=== PATIENT | female | born 1995 | race Hispanic/Latino ===

== ENCOUNTER 2017-02-01 19:37 | Inpatient (IN) | payer MEDICAID, OTHER, SELFPAY ==
[2017-02-01] MEDS ORDERED: Acetaminophen 500 MG TAB PO PRN (22:01)
[2017-02-01] MEDS ORDERED: Promethazine HCl 25 MG/ML VIAL IM PRN (22:01)
[2017-02-01] MEDS ORDERED: Docusate 100 MG CAP PO PRN (22:01)
[2017-02-01] MEDS ORDERED: Calcium Gluc 4.6 MEQ/10 ML (100 MG/ML) SLOW IVP PRN (22:01)
[2017-02-01] MEDS ORDERED: Magnesium Sulfate 20 gm/500 ml 20 GM/500 ML BAG ONE (22:09)
[2017-02-01] MEDS ORDERED: Labetalol HCl 100 MG/20 ML VIAL SLOW IVP PRN (22:14)
[2017-02-01] MEDS ORDERED: Penicillin G Potassium 5 MILL.UNITS in Sodium Chloride 0.9% 100 ML IVPB SCH (22:15)
[2017-02-01] MEDS ORDERED: Lactated Ringer's 1,000 ML IV SCH (22:15)
[2017-02-01] MEDS ORDERED: Magnesium Sulfate 20 GM/WATER 500 ML BAG IVPB SCH (22:15)
[2017-02-01 22:27] LABS: Hematocrit 46.8 % (36.0-47.0); Mean Platelet Volume 11.7 fL (7.4-10.4); Red Blood Cell (RBC) Count 5.02 mill/uL (4.20-5.40); White Blood Cell (WBC) Count 12.4 thou/uL (4.8-10.8)
[2017-02-01] MEDS: Magnesium Sulfate 20 gm/500 ml 20 GM/500 ML BAG IVPB SCH (22:48)
[2017-02-01] MEDS ORDERED: Betamet Acet/Betamet Na Ph 30 MG/5 ML VIAL IM SCH (23:00)
[2017-02-01] MEDS: Misoprostol 100 MCG TAB VAG SCH (23:15)
[2017-02-01 23:17] VITALS: BMI 27.3
[2017-02-01] MEDS: Ondansetron HCl/PF 4 MG/2 ML Vial IVP PRN (23:31)
[2017-02-02] MEDS: Lactated Ringer's 1,000 ML IV SCH ×4 (01:31→22:57)
--- NOTE | 2017-02-02 02:00 | PDOC.LDHP ---
Labor and Delivery H&P Chief complaint: other (elevated LFTs, BP, scotoma. Preeclampsia w/ severe features) HPI: 21 yo @ 36.2 by LMP and 2nd tri US presents to L&D after being found to have elevated BP >140 systolic X3 today at clinic. Additionally, pt was noted to have elevated LFT's >2X normal today. complicated by GDM treated with metformin 500mg BID. She reoprts good movement. C/o scotoma, ruq pain. Denies CP, sob, nvdc. Reports good movement. No other PMH, no prior surgeries. Allergy only to "buscapina." Current gestational age (weeks): 36 (36.3) Due date: 02/27/17 Dating criteria: last menstrual period, second trimester ultrasound Grav: 1 Para: 0 OB History Details: GDM on metformin PNV Current complications: gestational diabetes, preeclampsia with severe features Abnormal US findings: No Current medications: pre- vitamins, other (metformin) Social history: none - Physical Exam General: NAD, breathing through contractions Heart: RRR Lungs: CTAB Abdomen: other (ttp ruq) FHT: category 1, variability present Meyers contractions every: 3-8 min - Vaginal Exam cm dilated: 0 Effacement: 0% Station: 1+ - OB Labs Blood type: A RH: positive Antibody Screen: negative HIV: negative RPR: negative HEPSAg: negative 1 hour GCT: positive GBS: unknown Rubella: immune - Assessment L&D Assessment: medically indicated induction - Plan Plan: admit to L&D, cervical ripening, labor augmentation if indicated, GBS antibiotic prophylaxis, magnesium for seizure prophylaxis, anesthesia consult for pain management -: 21 yo @ 32.3 preeclampsia w/ severe features, start mag, check mag level @ 4hrs, titrate accordingly, mag check q4hr neuro check q1hr, monitor is/os, continuous external monitors, cytotec for induction if contractions less than 3/10min IVF LR @ 125 + 1L bolus GBS unknown and , will prophylax induction celestone 12mg q24 hours cervical checks q4 hrs <Mark Ornelas - Last Filed: 02/02/17 01:54> <Nereyda Clemens - Last Filed: 02/02/17 06:23> Allergies/Adverse Reactions: Allergies Allergy/AdvReac Type Severity Reaction Status Date / Time No Known Allergies Allergy Unverified 02/01/17 20:32 Attending Addendum - Attending Addendum I personally evaluated the patient and discussed the management with Dr. Ornelas on 02/01/17. I agree with the History, Examination, Assessment and Plan documented above with any addition or exceptions noted below. See dictated H&P. <Nereyda Clemens - Last Filed: 02/02/17 06:23>
--- NOTE | 2017-02-02 02:20 | PDOC.EVN ---
Event Note - Event Note Event Note: Mag check: no changes since prior exam, reflexes 2+. Denies scotoma, headache. Ruq pain persists. Urine clear, styles in place. Serum magnesium pending, will titrate accordingly. Continue plan of care. Hold cytotec for contractions >3/ 10min.
--- NOTE | 2017-02-02 04:26 | HP ---
DATE OF ADMISSION: 02/01/2017 ATTENDING: Dr. Nereyda Clemens. RESIDENT: Dr. Mark Ornelas. Dr. Ornelas's H and P reviewed and case discussed. Pertinent portion of the history and physical reviewed by myself and I agree with the assessment and plan with the following addendum. Ms. Jacobo is a 21-year-old female, , at 36 weeks 2 days, who was seen at the Clinic for routine visit this afternoon and had elevated blood pressures in the 140s/90s. She had 3 elevated readings in the clinic that resolved after 2 hours of rest. There was concern for preeclampsia, so laboratory work was done which returned with concerning values, so she was sent here for evaluation. On arrival, she was complaining of scotomas. Her blood pressures have been moderately elevated with multiple diastolics greater than 90. Her physical exam shows RUQ pain and hyperreflexia without clonus. On lab work review that was done earlier, she has platelets of 189, creatinine of 1.00 , AST of 97, ALT of 143, and a uric acid of 9.5. Case was briefly discussed with Dr. King and the patient was admitted for a preclampsia with severe features including scotomas, worsening renal function, right upper quadrant pain , and elevated LFTs. There is no concern for HELLP syndrome right now. The patient's cervical exam was closed, thick, and 0 station. She was started on magnesium with a bolus of 4 mg with 1 mg per hour. Given her elevated creatinine, we will check a serum magnesium level. If her levels remained non- toxic and her urine output is good, we will continue to monitor neurologic reflexes rather than serum levels. Given her status, as she is GBS unknown, we will start on penicillin prophylaxis and give Celestone IM 12 mg now with a second dose in 24 hours if she remains undelivered at that time. A Quiñones has been placed to monitor urine output. Given her unfavorable Wang score, a Cytotec will be placed. NST on arrival shows a category I strip. I anticipate a vaginal delivery for her. We will monitor her closely overnight. MTDD
[2017-02-02] MEDS: Misoprostol 100 MCG TAB VAG SCH ×3 (05:12→09:02)
--- NOTE | 2017-02-02 06:20 | PDOC.EVN ---
Event Note - Event Note Event Note: Mag check: serum mag resulted @ 0500 was 5, will maintain 1mg/hr rate. Reflexes remain 2+, UOP is averaging 200ml/hr, currently 1300mL in styles bag. Persistent RUQ pain. 2nd cytotec placed @ 0500, pt had 3 recurrent lates after placement which resolved w/ maternal O2. strip currently cat 1 mod variability baseline 130s-40s. Last cervical check 1, +1 station, thick, posterior. Pt reports adequate pain control. Continue plan of care.
[2017-02-02] MEDS ORDERED: Penicillin G Potassium 5 MILL.UNITS in Sodium Chloride 0.9% 100 ML IVPB SCH (06:30)
[2017-02-02] MEDS ORDERED: Bicitra 30 ML UDCUP PO SCH (08:45)
[2017-02-02] MEDS ORDERED: CEFAZOLIN/Water 2 GM/20 ML SYRINGE SLOW IVP SCH (08:45)
[2017-02-02] MEDS: Pen G 2.5 MILL.UNITS/50 ML BAG IVPB SCH ×2 (08:47→09:02)
[2017-02-02] MEDS ORDERED: Morphine PF 1 MG/ML SYR ONE (08:54)
[2017-02-02] MEDS ORDERED: Ondansetron HCl/PF 4 MG/2 ML Vial ONE ×2 (08:55→17:55)
[2017-02-02] MEDS ORDERED: Oxytocin 10 UNITS/ML VIAL ONE ×2 (08:55→10:50)
--- NOTE | 2017-02-02 09:02 | PDOC.LDPN ---
Labor & Delivery Progress Note - Subjective Subjective: comfortable - Objective Abnormal vital signs: elevated BPs noted General: NAD Uterine fundus: non tender SVE: 1 Effacement: 0% Station: 1+ FHT: category 2, late decelerations (recurrent late decels in site of IV fluids , position change and oxygen. Minimal variability. ) [employer] contractions every: 2 min, tachysystole noted. Resuscitative measures: maternal oxygen, maternal IV fluids, maternal position change, other (WIll give terbutaline for tachysystole.) - Assessment (1) Severe pre-eclampsia Code(s): O14.10 - SEVERE PRE-ECLAMPSIA, UNSPECIFIED TRIMESTER Current Visit: Yes Status: Acute (2) 36 weeks gestation of Code(s): Z3A.36 - 36 WEEKS GESTATION OF Current Visit: Yes Status : Acute (3) Gestational diabetes Code(s): O24.419 - GESTATIONAL DIABETES MELLITUS IN , UNSP CONTROL Current Visit: Yes Status: Acute (4) heart rate decelerations affecting management of mother Code(s): O36.8390 - MATERN CARE FOR ABNLT FETL HRT RATE OR RHYM, UNSP TRI, UNSP Current Visit: Yes Status: Acute Comment: Persitent Cat II tracing, remote form delivery. After discussion of the R/B/I/A, patiet concurs with plan for delivery.
[2017-02-02] MEDS ORDERED: PHENYLEPHRINE-NS 100 MCG/ML 10 ML SYRINGE ONE ×2 (09:03→17:55)
[2017-02-02] MEDS ORDERED: Terbutaline Sulfate 1 MG/ML VIAL SC SCH (09:30)
[2017-02-02] MEDS ORDERED: ePHEDrine/0.9% NaCl/PF SYRINGE 50 mg/10 ml ONE ×2 (10:27→17:55)
[2017-02-02 10:30] LABS: CO2 Tension (PaCO2) 133.1 mmHg (44.0-56.0)
[2017-02-02 10:31] LABS: Base Excess -15.7 mEq/L (0 (+/- 2.5)); pH (venous) 6.87 (7.25-7.35)
[2017-02-02] MEDS ORDERED: Calcium Gluconate 4.6 MEQ, Admixture Fee 1 EACH in Sodium Chloride 0.9% 100 ML IVPB PRN (10:34)
[2017-02-02] MEDS ORDERED: Adacel (T-DAP) 0.5 ML VIAL IM ONE (10:34)
[2017-02-02] MEDS ORDERED: Bisacodyl 10 MG SUPP PR PRN (10:35)
[2017-02-02] MEDS ORDERED: diphenhydrAMINE 25 MG CAP PO PRN (10:35)
[2017-02-02] MEDS ORDERED: HYDROcodone/Acetaminophen 5/325 mg Tablet PO PRN ×2 (10:35)
[2017-02-02] MEDS ORDERED: Acetaminophen 325 MG TAB PO PRN (10:35)
[2017-02-02] MEDS ORDERED: Simethicone Chewable 80 MG TAB PO PRN (10:35)
[2017-02-02] MEDS ORDERED: LR w/ Pitocin 40 units/1000 ML BAG IV SCH (10:45)
[2017-02-02] MEDS: Ondansetron HCl/PF 4 MG/2 ML Vial IVP PRN (12:50)
[2017-02-02] MEDS ORDERED: Ondansetron HCl/PF 4 MG/2 ML Vial IVP PRN (13:18)
[2017-02-02] MEDS ORDERED: Ketorolac Tromethamine 30 MG/ML VIAL IVP PRN (13:18)
[2017-02-02] MEDS ORDERED: diphenhydrAMINE 50 MG/ML VIAL IVP PRN (13:18)
[2017-02-02] MEDS ORDERED: Eucerin (Mineral Oil/Petrolatum,White) 30 gm Jar TOP PRN (13:18)
[2017-02-02] MEDS ORDERED: Naloxone HCl 0.4 mg/ml Vial IV PRN (13:18)
[2017-02-02] MEDS ORDERED: Promethazine HCl 25 MG/ML VIAL IM PRN (13:18)
[2017-02-02] MEDS ORDERED: Promethazine HCl 25 MG SUPP PR PRN (13:18)
[2017-02-02] MEDS ORDERED: Naloxone HCl 0.4 mg/ml Vial IVP PRN ×2 (13:18)
[2017-02-02] MEDS ORDERED: Communication Order-Pharmacy FS SCH (13:30)
[2017-02-02] MEDS: Magnesium Sulfate 20 gm/500 ml 20 GM/500 ML BAG IVPB SCH (14:23)
--- NOTE | 2017-02-02 14:29 | OP-2 ---
DATE OF PROCEDURE: 02/02/2017 RESIDENT SURGEON: Dr. Herb Almendarez, Dr. John Grace. BENCH MOVER: Dr. Mati Barboza. ATTENDING SURGEON: Dr. Mariano Rosas. PROCEDURE: Primary low transverse section. PREOPERATIVE DIAGNOSES: 1. intrauterine here for induction, because of severe preeclampsia. 2. Preeclampsia with severe features. 3. Transaminitis. 4. Gestational diabetes, well controlled by metformin. 5. Group B streptococcus unknown, treated prophylactically. 6. Persistent category 2 tracing, despite resuscitative efforts and in a patient remote from delivery. POSTOPERATIVE DIAGNOSES: 1. with term appropriate for gestational age male delivered. 2. Preeclampsia with severe features. 3. Transaminitis. 4. Controlled gestational diabetes on metformin. 5. GBS unknown, prophylaxis adequate. INDICATIONS: The patient is a 21-year-old, G1, P0, at 36 and 2 by LMP confirmed a second-trimester ultrasound, who is here for induction because of preeclampsia with severe features. She had controlled gestational diabetes on metformin. section was indicated as patient had persistent category 2 tracing with recurrent late decelerations and intermittent minimal variability. The patient was remote from delivery. The patient did have periods of moderate variability within this. PROCEDURE IN DETAIL: After risks, benefits, and alternatives were explained to the patient, she gave informed consent. Preoperative antibiotics including cefazolin 2 grams IV. The patient was taken to the operating room where spinal anesthesia was initiated. She was placed in supine position with left tilt and prepped and draped in the usual sterile fashion. A Pfannenstiel incision was made with scalpel and carried down to the level of fascia, which was sharply nicked. Fascial cut was extended bilaterally with Haile scissors. Inferior and superior edges of the cut fascial edges were elevated with Luis Angel clamps and underlying rectus muscles were sharply and bluntly dissected free. The recti were divided digitally and retracted manually. The peritoneum was entered bluntly, retracted manually. Bladder blade was placed. Bladder flap was created with Metzenbaum scissors. A low-transverse score was made with the scalpel. The uterus was entered in the midline with scalpel. A clear fluid with light meconium was seen. Hysterotomy was extended manually. was noted to be vertex. Head was delivered to hysterotomy and then was easily delivered with fundal pressure. Infant was noted to have poor tone and cord was cut and clamped and patient was brought to J[facility] team expeditiously. Placenta was manually extracted and found to be intact with 3-vessel cord noted and sent to pathology. Cord gas was obtained. Uterus was externalized and endometrium was curetted with a dry lap. Bladder blade was replaced and the uterus was closed with a running locking 0 Monocryl. During closure it was noted that there was a left lateral extension of the hysterotomy that did not involve the uterine artery. It was closed as part of the hysterotomy closure and was hemostatic. The uterus was internalized and one small area of bleeding was noted in the middle of the hysterotomy, which was fixed with a figure-of- eight with 0 Monocryl. The abdomen was suctioned free of clots, no blood was noted. While uterus was internalized, the retroperitoneum created with bladder flap was reattached to the vesicoperitoneum above the hysterotomy. Again, hemostasis was noted. Peritoneum was closed with a 3-0 Monocryl. The fascia was then closed with a running nonlocking 0-Vicryl suture. Subcutaneous tissue was examined and there were no bleeders. Skin was approximated with neri and pressure dressing was placed. All counts were correct. The patient tolerated the procedure well and was taken to recovery room in stable condition. ESTIMATED BLOOD LOSS: 500 mL. COMPLICATIONS: None. SPECIMENS: Cord blood sent to lab for blood type. Placenta sent for pathology and cord segment sent for blood gas. FINDINGS: Grossly normal male, but with poor tone. Apgars are 3, 7, and 8 respectively, grossly normal placenta, 3-vessel cord that was grossly flat was sent for was sent to pathology. DRAINS: Quiñones to gravity, draining clear urine. [facility]
--- NOTE | 2017-02-02 14:50 | PDOC.PP ---
Post Progress Note Post Day #: 0 Subjective: Pt is doing well. States that she is still numb from the epidural. Denies headache. Has improving nausea/vomiting. Denies UE numbness/tingling. PO intake tolerated: yes Flatus: no Ambulation: no Vital Signs (12 hours) Temp Pulse Resp 02/02/17 12:04 99.2 F 90 18 02/02/17 08:06 98.8 F 90 18 Weight Weight 63.503 kg - Physical Examination General: NAD Neurological: no gross focal deficits (Patellar reflex 2/4) Psychiatric: A&Ox3 Result Diagrams: 02/01/17 21:50 Additional Labs: Post Labs Blood Type A POSITIVE 02/01/17 21:50 Hep Bs Antigen Non-Reactive S/CO (NonReactive) 02/01/17 21:50 (1) delivery delivered Code(s): O82 - ENCOUNTER FOR DELIVERY WITHOUT INDICATION Status: Acute Comment: Pt is doing well post op. Has controlled pain. n/v is improving from OR. Incision is clean (2) Severe pre-eclampsia Code(s): O14.10 - SEVERE PRE-ECLAMPSIA, UNSPECIFIED TRIMESTER Status: Acute Comment: Mg check at 1430. DTR 2/5, no UE numbness, no headache, no changes in vision. Check again in 4 hours
--- NOTE | 2017-02-02 17:17 | PDOC.PP ---
Post Progress Note Post Day #: 0 Subjective: Pt feeling well. States that pain is improving. Denies headaches, changes in vision, UE numbness/tingling. PO intake tolerated: yes Flatus: no Ambulation: no Vital Signs (12 hours) Temp Pulse Resp 02/02/17 12:04 99.2 F 90 18 02/02/17 08:06 98.8 F 90 18 Weight Weight 63.503 kg - Physical Examination General: NAD Cardiovascular: no m/r/g, RRR Respiratory: clear to auscultation bilaterally Abdominal: appropriately TTP Fundus firm & at: U Neurological: no gross focal deficits (DTR 2/4) Psychiatric: A&Ox3 Result Diagrams: 02/01/17 21:50 Additional Labs: Post Labs Blood Type A POSITIVE 02/01/17 21:50 Hep Bs Antigen Non-Reactive S/CO (NonReactive) 02/01/17 21:50 (1) delivery delivered Code(s): O82 - ENCOUNTER FOR DELIVERY WITHOUT INDICATION Status: Acute Comment: Pt is doing well post op. Has controlled pain. n/v is improving from OR. Incision is clean (2) Severe pre-eclampsia Code(s): O14.10 - SEVERE PRE-ECLAMPSIA, UNSPECIFIED TRIMESTER Status: Acute Comment: Mg check at 1715. DTR 2/4, no UE numbness, no headache, no changes in vision. Check again in 4 hours. LE is still numb from epidural. Draw Mg level at 1800
[2017-02-02] MEDS: Docusate (Surfak) 240 MG CAP PO SCH (21:30)
--- NOTE | 2017-02-02 22:17 | PDOC.PP ---
Post Progress Note Post Day #: 1 Subjective: 21 yo delivered @ 36.3 via ltcs 2/2 NRFHT and preeclampsia w/ severe features. Pt denies headache, vision changes, epigastric and RUQ pain. UOP has been approx 350mL/hr over last 2 hours and latest BP was 132/67. Overall, pt continues to improve. Vital Signs (12 hours) Temp Pulse Resp 02/02/17 20:00 98.3 F 96 20 02/02/17 16:00 99.0 F 88 18 02/02/17 12:04 99.2 F 90 18 Weight Weight 63.503 kg - Physical Examination General: NAD Cardiovascular: no m/r/g, RRR Respiratory: clear to auscultation bilaterally, non-labored breathing Abdominal: + bowel sounds, no distention, appropriately TTP Neurological: no gross focal deficits (reflexes 2+) Result Diagrams: 02/01/17 21:50 Additional Labs: Post Labs Blood Type A POSITIVE 02/01/17 21:50 Hep Bs Antigen Non-Reactive S/CO (NonReactive) 02/01/17 21:50 (1) delivery delivered Code(s): O82 - ENCOUNTER FOR DELIVERY WITHOUT INDICATION Status: Acute Comment: Pt is doing well post op. Has controlled pain. (2) Severe pre-eclampsia Code(s): O14.10 - SEVERE PRE-ECLAMPSIA, UNSPECIFIED TRIMESTER Status: Acute Comment: Mg check at 2215. DTR 2+/4, no UE numbness, no headache, no changes in vision. Check again in 4 hours. Mag pending.
--- NOTE | 2017-02-03 02:18 | PDOC.PP ---
Post Progress Note Post Day #: 1 Subjective: 21 delivered via ltcs 2/2 nrfht and preeclampsia with severe features. PO intake tolerated: yes Vital Signs (12 hours) Temp Pulse Resp 02/03/17 00:11 98.5 F 93 20 02/02/17 20:00 98.3 F 96 20 02/02/17 16:00 99.0 F 88 18 Weight Weight 63.503 kg - Physical Examination General: NAD Cardiovascular: no m/r/g, RRR Respiratory: clear to auscultation bilaterally, non-labored breathing Abdominal: + bowel sounds, appropriately TTP (no epigatric or ruq tenderness) Neurological: no gross focal deficits (reflexes 2+/4, unchanged from prior exam) Result Diagrams: 02/01/17 21:50 Additional Labs: Post Labs Blood Type A POSITIVE 02/01/17 21:50 Hep Bs Antigen Non-Reactive S/CO (NonReactive) 02/01/17 21:50 (1) Severe pre-eclampsia Code(s): O14.10 - SEVERE PRE-ECLAMPSIA, UNSPECIFIED TRIMESTER Status: Acute Comment: Mg check at 0215. DTR 2+/4, no headache, no changes in vision. Check again in 4 hours. Mag level therapeutic. Pt continues to diurese well. UOP averaging 500mL/hr over last 2 hrs. Will continue to monitor.
--- NOTE | 2017-02-03 05:39 | PDOC.PP ---
Post Progress Note Post Day #: 1 PO intake tolerated: yes Vital Signs (12 hours) Temp Pulse Resp 02/03/17 00:11 98.5 F 93 20 02/02/17 20:00 98.3 F 96 20 Weight Weight 63.503 kg - Physical Examination General: NAD Cardiovascular: no m/r/g, RRR Respiratory: clear to auscultation bilaterally, non-labored breathing Abdominal: + bowel sounds, appropriately TTP (no ruq/epigastric ttp) Neurological: no gross focal deficits (reflexes 2+/4, unchanged from prior exam) Result Diagrams: 02/01/17 21:50 Additional Labs: Post Labs Blood Type A POSITIVE 02/01/17 21:50 Hep Bs Antigen Non-Reactive S/CO (NonReactive) 02/01/17 21:50 (1) Severe pre-eclampsia Code(s): O14.10 - SEVERE PRE-ECLAMPSIA, UNSPECIFIED TRIMESTER Status: Acute Comment: Mg check at 0535. DTR 2+/4, no headache, no changes in vision. Check again in 4 hours. Mag level therapeutic. Pt continues to diurese well. UOP averaging 500mL/hr over last 2 hrs. last BP 116/61, overall BP continues to trend down. Will continue to monitor.
[2017-02-03 06:01] LABS: Hematocrit 39.8 % (36.0-47.0); Mean Platelet Volume 9.9 fL (7.4-10.4); Red Blood Cell (RBC) Count 4.24 mill/uL (4.20-5.40); White Blood Cell (WBC) Count 18.1 thou/uL (4.8-10.8)
--- NOTE | 2017-02-03 08:26 | PDOC.PP ---
Post Progress Note Post Day #: 1 Subjective: Pt is doing well this morning. She complains of minimal pain without medication. She is soaking though less than 1 pad per hour. Denies fever, SOB/ chest pain, she has some flatus. PO intake tolerated: yes Flatus: yes Ambulation: no Vital Signs (12 hours) Temp Pulse Resp 02/03/17 04:00 98.5 F 93 20 02/03/17 00:11 98.5 F 93 20 Weight Weight 63.503 kg - Physical Examination General: NAD Cardiovascular: no m/r/g, RRR Respiratory: clear to auscultation bilaterally, non-labored breathing Abdominal: + bowel sounds, lochia, no distention, appropriately TTP Fundus firm & at: u -3 Extremities: negative homans (B) Skin: CS incision dry & intact Neurological: no gross focal deficits Psychiatric: A&Ox3, normal affect Result Diagrams: 02/03/17 05:43 Additional Labs: Post Labs Blood Type A POSITIVE 02/01/17 21:50 Hep Bs Antigen Non-Reactive S/CO (NonReactive) 02/01/17 21:50 (1) delivery delivered Code(s): O82 - ENCOUNTER FOR DELIVERY WITHOUT INDICATION Status: Acute Comment: Pt is doing well post op. Has controlled pain. Incision is clean and dry. Move to post after dc'ing Mg. (2) Severe pre-eclampsia Code(s): O14.10 - SEVERE PRE-ECLAMPSIA, UNSPECIFIED TRIMESTER Status: Acute Comment: Mg will continue until 1000. DTR 2+/4, no headache, no changes in vision. Check again in 4 hours. Mag level therapeutic. Pt continues to diurese well. UOP averaging 500mL/hr over last 2 hrs. last BP 116/61, overall BP continues to trend down. Will continue to monitor. <Mati Barboza - Last Filed: 02/03/17 10:27> Vital Signs (12 hours) Temp Pulse Resp 02/03/17 08:00 98.6 F 90 18 02/03/17 04:00 98.5 F 93 20 02/03/17 00:11 98.5 F 93 20 Weight Weight 63.503 kg Result Diagrams: 02/03/17 05:43 Additional Labs: Post Labs Blood Type A POSITIVE 02/01/17 21:50 Hep Bs Antigen Non-Reactive S/CO (NonReactive) 02/01/17 21:50 (1) Severe pre-eclampsia Code(s): O14.10 - SEVERE PRE-ECLAMPSIA, UNSPECIFIED TRIMESTER Status: Acute Comment: Complete mag this morning. (2) 36 weeks gestation of Code(s): Z3A.36 - 36 WEEKS GESTATION OF Status: Acute (3) Gestational diabetes Code(s): O24.419 - GESTATIONAL DIABETES MELLITUS IN , UNSP CONTROL Status: Acute <Mariano Rosas - Last Filed: 02/03/17 10:35> Attending Addendum - Attending Addendum I personally evaluated the patient and discussed the management with Dr. Barboza. I agree with the History, Examination, Assessment and Plan documented above with any addition or exceptions noted below. Doing well. <Mariano Rosas - Last Filed: 02/03/17 10:35>
[2017-02-03] MEDS ORDERED: Ondansetron HCl/PF 4 MG/2 ML Vial IVP PRN (13:17)
[2017-02-03] MEDS ORDERED: Bisacodyl 10 MG SUPP PR PRN (13:17)
[2017-02-03] MEDS ORDERED: Adacel (T-DAP) 0.5 ML VIAL IM ONE (13:17)
[2017-02-03] MEDS ORDERED: Acetaminophen 325 MG TAB PO PRN (13:17)
[2017-02-03] MEDS ORDERED: Simethicone Chewable 80 MG TAB PO PRN (13:17)
[2017-02-03] MEDS: Lactated Ringer's 1,000 ML IV SCH (15:55)
[2017-02-03] MEDS: Docusate (Surfak) 240 MG CAP PO SCH ×2 (15:56→20:03)
[2017-02-03] MEDS: HYDROcodone/Acetaminophen 5/325 mg Tablet PO PRN (20:02)
[2017-02-04 05:56] LABS: Hematocrit 42.4 % (36.0-47.0); Mean Platelet Volume 9.7 fL (7.4-10.4); Red Blood Cell (RBC) Count 4.47 mill/uL (4.20-5.40); White Blood Cell (WBC) Count 13.2 thou/uL (4.8-10.8)
--- NOTE | 2017-02-04 07:49 | PDOC.PP ---
Post Progress Note Post Day #: 2 Subjective: Pt is doing well today. States that her pain is well controlled and that she does not need meds. She is walking frequently, is voiding without issue, and has flatus. Vaginal bleeding is minimal. PO intake tolerated: yes Flatus: yes Ambulation: yes Vital Signs (12 hours) Temp Pulse Resp BP BP 02/04/17 06:00 98.0 F 73 18 126/67 02/03/17 23:52 98.1 F 62 18 124/61 02/03/17 20:00 97.8 F 76 20 127/76 Weight Weight 63.503 kg - Physical Examination General: NAD Cardiovascular: RRR Deviation from normal: Systolic murmur that does not radiate Respiratory: clear to auscultation bilaterally Abdominal: + bowel sounds, lochia (scant), no distention, appropriately TTP Fundus firm & at: u -4 Extremities: negative homans (B) Skin: CS incision dry & intact Neurological: no gross focal deficits Psychiatric: A&Ox3, normal affect Result Diagrams: 02/04/17 05:06 Additional Labs: Post Labs Blood Type A POSITIVE 02/01/17 21:50 Hep Bs Antigen Non-Reactive S/CO (NonReactive) 02/01/17 21:50 (1) delivery delivered Code(s): O82 - ENCOUNTER FOR DELIVERY WITHOUT INDICATION Status: Acute Comment: Pt is doing well post op. Has controlled pain. Incision is clean and dry. Will be ready for dc today with baby (2) Severe pre-eclampsia Code(s): O14.10 - SEVERE PRE-ECLAMPSIA, UNSPECIFIED TRIMESTER Status: Acute Comment: Complete mag this morning. BPs have been in 120s-130s since dc'ing Mg. Follow up outpt for continued monitoring. <Mati Barboza - Last Filed: 02/04/17 08:02> Vital Signs (12 hours) Temp Pulse Resp BP BP 02/04/17 08:14 98.2 F 73 20 119/78 02/04/17 07:55 98.2 F 73 20 02/04/17 06:00 98.0 F 73 18 126/67 02/03/17 23:52 98.1 F 62 18 124/61 Weight Weight 63.503 kg Result Diagrams: 02/04/17 05:06 Additional Labs: Post Labs Blood Type A POSITIVE 02/01/17 21:50 Hep Bs Antigen Non-Reactive S/CO (NonReactive) 02/01/17 21:50 (1) Severe pre-eclampsia Code(s): O14.10 - SEVERE PRE-ECLAMPSIA, UNSPECIFIED TRIMESTER Status: Acute Comment: Complete mag this morning. BPs have been in 120s-130s since dc'ing Mg. Follow up outpt for continued monitoring. (2) 36 weeks gestation of Code(s): Z3A.36 - 36 WEEKS GESTATION OF Status: Acute (3) Gestational diabetes Code(s): O24.419 - GESTATIONAL DIABETES MELLITUS IN , UNSP CONTROL Status: Acute <Mariano Rosas - Last Filed: 02/04/17 09:31> Attending Addendum - Attending Addendum I personally evaluated the patient and discussed the management with Dr. Barboza. I agree with the History, Examination, Assessment and Plan documented above with any addition or exceptions noted below. Stable for discharge. <Mariano Rosas - Last Filed: 02/04/17 09:31>
[2017-02-04 08:15] VITALS: BP 119/78; TEMP 98.2
[2017-02-04] MEDS: Docusate (Surfak) 240 MG CAP PO SCH (08:24)
[2017-02-04] MEDS: HYDROcodone/Acetaminophen 5/325 mg Tablet PO PRN (08:25)
[2017-02-04] MEDS ORDERED: Ibuprofen 800 MG TAB PO PRN (10:38)
== END 2017-02-04 14:20 | disposition home or self-care (01) | DRG 766 ==
LOC: L&D 19:37 → 3SW 02-03 12:39
PROVIDERS: ADMIT Family Medicine; ATTEND Family Medicine
PROC: 10D00Z1 Extraction of Products of Conception, Low, Open Approach (ICD-10-PCS; principal; 2017-02-02)
PROC: 3E0P7VZ Introduction of Hormone into Female Reproductive, Via Natural or Artificial Opening (ICD-10-PCS; 2017-02-02)
DX: O14.14 Severe pre-eclampsia complicating childbirth (principal); O24.425 Gestational diabetes mellitus in childbirth, controlled by oral hypoglycemic drugs; O99.824 Streptococcus B carrier state complicating childbirth; O76 Abnormality in fetal heart rate and rhythm complicating labor and delivery; Z3A.36 36 weeks gestation of pregnancy; Z37.0 Single live birth
CPT/HCPCS: 36415; 36416; 80053; 81003; 82570; 82805; 83735; 84550; 85025; 85027; 86780; 86850; 86900; 86901; 87340; 88307; J0702; J2274; J2405; J2540; J2590; J3105; J3475; J7050

== ENCOUNTER 2017-10-23 00:46 | Emergency (ER) | payer MEDICAID, SELFPAY ==
[2017-10-23 01:15] LABS: #Basophils 0.1 thou/uL (0.0-0.2); #Eosinphils 0.3 thou/uL (0.0-0.7); #Lymphocytes 3.6 thou/uL (1.20-3.40); #Monocytes 0.5 thou/uL (0.11-0.59); #Neutrophils 5.8 thou/uL (1.40-6.50); %Basophils 1.2 % (0.0-1.0); %Eosinophils 2.8 % (0.0-10.0); %Lymphocytes 35.2 % (21.0-51.0); %Monocytes 4.6 % (0.0-10.0); %Neutrophils 56.1 % (42.0-75.0); Hemoglobin 13.6 g/dL (12.0-16.0); Mean Corpuscular HGB CONC 35.6 g/dL (32.0-36.0); Mean Corpuscular Volume 84.2 fL (78.0-98.0); Mean Platelet Volume 8.4 fL (7.4-10.4); Platelet Count 235 thou/uL (130-400); RBC Distribution Width 11.9 % (11.5-14.5); Red Blood Cell (RBC) Count 4.54 mill/uL (4.20-5.40); White Blood Cell (WBC) Count 10.3 thou/uL (4.8-10.8)
[2017-10-23 01:37] LABS: ALT (SGPT) 7 U/L (8-55); AST (SGOT) 8 U/L (5-34); Albumin 3.8 g/dL (3.5-5.0); Alkaline Phosphatase 74 U/L (40-150); Anion Gap 13 mmol/L (10-20); BUN (Urea Nitrogen) 12 mg/dL (7.0-18.7); Bilirubin, Total 0.2 mg/dL (0.2-1.2); Calc. Creatinine Clearance 0 mL/min (70-130); Calcium 9.4 mg/dL (7.8-10.44); Carbon Dioxide 22 mmol/L (22-29); Chloride 105 mmol/L (98-107); Estimated GFR-MDRD Greater than 90; Globulin 3.4 g/dL (2.4-3.5); Glucose 107 mg/dL (70-105); Potassium 3.7 mmol/L (3.5-5.1); Protein, Total 7.2 g/dL (6.0-8.3); Sodium 136 mmol/L (136-145)
[2017-10-23] MEDS ORDERED: Mag-Al 1200 mg/1200 mg/30 ML UDCUP ONE (05:11)
[2017-10-23] MEDS ORDERED: Acetaminophen 500 MG TAB ONE (05:11)
[2017-10-23] MEDS ORDERED: Lidocaine Viscous Sol 2% 15 ml UD Cup ONE (05:11)
[2017-10-23] MEDS ORDERED: Ondansetron ODT 8 MG TAB ONE (05:11)
[2017-10-23 05:15] LABS: Bilirubin Negative (Negative); Blood, Urine Negative (Negative); Clarity CLOUDY (Clear); Glucose, Urine (Dipstick) Negative (Negative); Leukocyte Small (Negative); Nitrite Negative (Negative); Protein, Urine (Dipstick) Trace mg/dL (Neg-Trace); Specific Gravity, Urine 1.016 (1.002-1.036); Urobilinogen 0.2 mg/dL (0.2-1.0); pH, Urine 7.5 (5.0-9.0)
[2017-10-23 05:17] LABS: Bacteria/HPF 1+ HPF (None Seen); Hyaline Casts/LPF 0-3 HYALINE CAST LPF (0-3 Hyaline); Pathc Cast-AUWi Flag 0.29 (0-2.49); RBC/HPF 0-3 HPF (0-3)
[2017-10-23 05:37] LABS: Renal Epithelial None Seen HPF (0-3); Transitional Epithelial NONE SEEN HPF (0-3)
--- NOTE | 2017-10-23 15:43 | ULT ---
PRELIMINARY REPORT/[facility]/EMERGENT[facility] AFTER-HOURS PROCEDURE US After First Trimester, Transabdominal CLINICAL HISTORY: 21 years old, female; Pain; Other: Pelvic cramping, unknown dates; Gestational age or lmp: 17wks; Pre gnant; Prior surgery; Surgery date: 6+ months; Surgery type: TECHNIQUE: Real-time transabdominal obstetrical ultrasound of the maternal pelvis and a second or third trimeste r with image documentation. COMPARISON: No relevant prior studies available. FINDINGS: Fetus: Single living intrauterine gestation. Heart rate: 144 bpm Presentation: Transverse. Placenta: Posterior. No abruption. Amniotic fluid: Appears adequate. Anatomy: Limited evaluation of the face due to position. Visualized anatomy is otherwise unrema rkable. BIOMETRICS Gestational age by US: 17w3d JEANETTE(AUA): 03/30/2018 EFW: 186g MATERNAL: Uterus: No myometrial mass. Cervix: No acute findings. Closed. Free fluid: No significant free fluid. IMPRESSION: Single viable intrauterine . No acute findings. Thank you for allowing us to participate in the care of your patient. Dictated and Authenticated by: Isaias Aldana MD 10/23/2017 6:49 AM Central Time ([place] & [place]) FINAL REPORT LIMITED OB ULTRASOUND: I agree with the preliminary report given by Dr. Aldana of [place]. POS: [facility]
== END 2017-10-23 05:57 | disposition home or self-care (01) ==
LOC: ERS 00:46
DX: R11.2 Nausea with vomiting, unspecified (principal)
CPT/HCPCS: 36415; 76815; 80053; 81003; 81015; 83690; 84702; 85025

== ENCOUNTER 2018-03-14 23:11 | Inpatient (IN) | payer MEDICAID, OTHER, SELFPAY ==
[2018-03-15] MEDS ORDERED: Promethazine HCl 25 MG/ML VIAL IM PRN ×3 (00:36→05:39)
[2018-03-15] MEDS ORDERED: Ondansetron PF 4 MG/2 ML Vial IVP PRN ×3 (00:36→05:39)
--- NOTE | 2018-03-15 00:40 | PDOC.FPROB ---
FMR OB H&P: HPI - History of Present Illness Chief Complaint: contractions Indentification: 22 yo @ 37.6 wk by 17.3 wk sono presents with contractions History of Present Illness: 22 yo @ 37.6 wk by 17.3 wk sono presents with contractions q1-2 minutes since this morning, starting around 10 AM. Baby moving well, no vaginal bleeding , no abnormal discharge, no LOF. Denies headache, vision changes, abdominal pain other than contractions, swelling in hands/feet. Reports nausea, vaginal pressure, itching in her hands, feet, and neck. Primary Care Physician: Shorty Hoffman FMR OB H&P: Current - Care : 2 Para: 1001 Gestational age: 37.6 Due date: 03/29/18 Dating Criteria: 17.3 wk sono Total weight gain: 16 lb Course/Complications: A1GDM vs glucose intolerance Hx of Pre-E with elevated blood pressures Hx of pre-term delivery @ 36 wks Hx of prior section - OB Labs Blood type: A RH: positive Antibody Screen: negative HIV: negative RPR: negative HepBsAg: negative Rubella: immune Gonorrhea: negative Chlamydia: negative GBS: negative H&H: 12.5/36.7 - First Trimester Ultrasound First trimester: posterior placenta FMR OB H&P: History - Past Medical History PMH: None - OB History OB History: Hx of A2GDM on metformin in first Hx of Pre-E with first Hx of pre-term delivery @ 36 wks Hx of prior section - [place] History [place] History: None - Surgical History Sx History: pLTCS - Social History Social History: denies alcohol, smoking, drug use - Family History Family History: Denies family history of autism, down syndrome, or cardiac disease FMR OB H&P: Medications - Current Home Medications: Medication Instructions Recorded Confirmed Type Vitamin 1 tab PO DAILY 02/01/17 02/01/17 History Acetaminophen [Tylenol Regular 650 mg PO Q4H PRN tab 02/04/17 03/15/18 Rx Strength] Allergies/Adverse Reactions: Allergies Allergy/AdvReac Type Severity Reaction Status Date / Time No Known Allergies Allergy Verified 03/15/18 00:46 FMR OB H&P: ROS - Review of Systems General: denies: fever/chills Eyes: denies: eye pain, vision changes ENT: denies: nasal congestion, ear pain, ringing in ears, sore throat Cardiovascular: denies: chest pain, palpitation, edema Respiratory: denies: cough, congestion, shortness of breath Gastrointestinal: reports: nausea. denies: abdominal pain, vomiting, diarrhea, constipation, bright red blood Genitourinary (Female): reports: contractions, vaginal pressure. denies: dysuria, hematuria, vaginal discharge, vaginal bleeding Musculoskeletal: denies: pain, stiffness, tenderness Neurologic: denies: numbness, weakness, headache Integumentary: reports: itching (hands, feet, neck). denies: rash FMR OB H&P: Vital Signs - Maternal Vital signs: BP 143/84 HR 90 R 20 T 98.9 O2 98 on RA - Heart Tones Baseline: 140 Variability: moderate Acceleration: present Deceleration: absent Category: category 1 [employer] contractions every: 1-2 minutes FMR OB H&P: Physical Exam - Physical Exam General: NAD, awake, alert and oriented HEENT: normocephalic and atraumatic, PERRLA, EOMI, MMM, grossly normal hearing, oropharynx clear Neck: supple, no LAD Heart: RRR, normal S1/S2, no murmurs/rubs/gallops, pulses present General: CTAB, no respiratory distress, good air movement, no rales/rhonchi, no wheezing Abdomen: soft, gravid, bowel sound present Musculoskeletal: pulses present, no misalignment/asymmetry, no atrophy Skin: no rash, good tugor, capillary refill <2 seconds Lymphatic: no unusual bruising or bleeding, no purpura Psychiatric: intact recent and remote memory, good judgement and insight, normal mood and affect - Pelvic Exam Vulva: normal hair distribution Estimated Weight: 6 lbs FMR OB H&P: A/P - Problem List (1) 37 weeks gestation of Current Visit: Yes Status: Acute Code(s): Z3A.37 - 37 WEEKS GESTATION OF (2) Gestational diabetes Current Visit: No Status: Acute Code(s): O24.419 - GESTATIONAL DIABETES MELLITUS IN , UNSP CONTROL (3) Elevated blood pressure affecting in third trimester, antepartum Current Visit: Yes Status: Acute Code(s): O16.3 - UNSPECIFIED MATERNAL HYPERTENSION, THIRD TRIMESTER (4) Hx of pre-eclampsia in prior , currently Current Visit: Yes Status: Chronic Code(s): O09.299 - SUPRVSN OF PREG W POOR REPRODCTV OR OBSTET HISTORY, UNSP TRI (5) Hx of section Current Visit: Yes Status: Chronic Code(s): Z98.891 - HISTORY OF UTERINE SCAR FROM PREVIOUS SURGERY Discussion: Date/Time: 03/15/18 0036 22 yo @ 37.6 wk by 17.3 wk sono presents with contractions sIUP -SVE 4/100/0 -FHTs Cat 1: 140, mod variability, accels+, no decels, cxn q1-2 minutes -Previous pLTCS, patient desires repeat at this time -GBS negative -Plan for Repeat low transverse section -Azithromycin, Ancef ppx -LR @ 125 ml/hr -Hemagram pending GDMA1 vs glucose intolerance -1 hr abnormal -3 hr - unknown, will obtain records in the AM Elevated BP with hx of Pre-E -with prior had Pre-eclampsia with severe features -On aspirin -blood pressures currently 152/90, 146/83 -Asymptomatic at this time -Urine protein/creatinine pending -CMP pending Hx of Hx of Delivery Addendum - Attending - Attending Attestation Date/Time: 03/15/18 7348 I personally evaluated the patient and discussed the management with Dr. Hoffman and Dr Grace. I agree with the History, Examination, Assessment and Plan documented above with any addition or exceptions noted below.
[2018-03-15 00:45] VITALS: BMI 28.9
[2018-03-15] MEDS ORDERED: CEFAZOLIN 2 GM/50 ML BAG IVPB SCH (00:45)
[2018-03-15] MEDS ORDERED: Bicitra 30 ML UDCUP PO SCH (00:45)
[2018-03-15] MEDS ORDERED: Lactated Ringer's 1,000 ML IV SCH (00:45)
[2018-03-15 00:49] LABS: Hemoglobin 14.7 g/dL (12.0-16.0); Mean Corpuscular HGB CONC 34.9 g/dL (32.0-36.0); Mean Corpuscular Volume 85.9 fL (78.0-98.0); Mean Platelet Volume 11.4 fL (7.4-10.4); Platelet Count 188 thou/uL (130-400); RBC Distribution Width 12.7 % (11.5-14.5); Red Blood Cell (RBC) Count 4.91 mill/uL (4.20-5.40); White Blood Cell (WBC) Count 9.9 thou/uL (4.8-10.8)
[2018-03-15] MEDS ORDERED: Azithromycin 500 MG in Sodium Chloride 0.9% 250 ML 250 ML IVPB SCH (01:00)
[2018-03-15 01:11] LABS: ALT (SGPT) 24 U/L (8-55); AST (SGOT) 25 U/L (5-34); Albumin 3.3 g/dL (3.5-5.0); Alkaline Phosphatase 417 U/L (40-150); Anion Gap 16 mmol/L (10-20); BUN (Urea Nitrogen) 10 mg/dL (7.0-18.7); Bilirubin, Total 0.5 mg/dL (0.2-1.2); Calc. Creatinine Clearance 133 mL/min (70-130); Calcium 9.4 mg/dL (7.8-10.44); Carbon Dioxide 17 mmol/L (22-29); Chloride 110 mmol/L (98-107); Estimated GFR-MDRD Greater than 90; Globulin 3.7 g/dL (2.4-3.5); Glucose 101 mg/dL (70-105); Potassium 4.4 mmol/L (3.5-5.1); Sodium 139 mmol/L (136-145)
[2018-03-15 01:27] LABS: Syphilis Antibody Nonreactive (Nonreactive); Syphilis Antibody Index 0.03 S/CO (<1.00 Non-Reactive)
[2018-03-15 01:28] LABS: HBSAg Index 0.18 S/CO (0-0.99); Hep B Surf Ag Non-Reactive S/CO (NonReactive)
[2018-03-15] MEDS ORDERED: ePHEDrine/0.9% NaCl/PF SYRINGE 50 mg/10 ml ONE (01:34)
[2018-03-15] MEDS ORDERED: Ondansetron PF 4 MG/2 ML Vial ONE (01:34)
[2018-03-15] MEDS ORDERED: Morphine PF 1 MG/ML SYR ONE (01:34)
[2018-03-15] MEDS ORDERED: Ketorolac Tromethamine 30 MG/ML VIAL ONE (01:34)
[2018-03-15] MEDS ORDERED: Oxytocin 10 UNITS/ML VIAL ONE ×2 (01:34→03:02)
[2018-03-15] MEDS ORDERED: Fentanyl 100 MCG/2 ML VIAL ONE (01:34)
[2018-03-15] MEDS ORDERED: Meperidine HCl/PF 25 MG/ML VIAL SLOW IVP PRN (02:00)
[2018-03-15] MEDS ORDERED: Eucerin (Mineral Oil/Petrolatum,White) 30 gm Jar TOP PRN (02:00)
[2018-03-15] MEDS ORDERED: Ketorolac Tromethamine 30 MG/ML VIAL IVP PRN (02:00)
[2018-03-15] MEDS ORDERED: Promethazine HCl 25 MG SUPP PR PRN (02:00)
[2018-03-15] MEDS ORDERED: Ketorolac Tromethamine 30 MG/ML VIAL IVP SCH (02:00)
[2018-03-15] MEDS ORDERED: HYDROmorphone 2 MG/ML VIAL SLOW IVP PRN (02:00)
[2018-03-15] MEDS ORDERED: Communication Order-Pharmacy FS SCH (02:00)
[2018-03-15] MEDS ORDERED: Naloxone HCl 0.4 mg/ml Vial IV PRN (02:00)
[2018-03-15] MEDS ORDERED: Naloxone HCl 0.4 mg/ml Vial IVP PRN ×2 (02:00)
[2018-03-15] MEDS ORDERED: Ondansetron HCl/PF 4 MG/2 ML Vial IVP PRN (02:00)
[2018-03-15] MEDS ORDERED: L&D-Morphine 4 MG/ML VIAL SLOW IVP PRN (02:00)
[2018-03-15] MEDS ORDERED: diphenhydrAMINE 50 MG/ML VIAL IVP PRN (02:00)
--- NOTE | 2018-03-15 05:16 | OP ---
DATE OF PROCEDURE: 03/15/2018 RESIDENT SURGEONS: Dr. Alli Hoffman, Dr. Hue Menjivar. ATTENDING SURGEON: Dr. Mariano Rosas PROCEDURE PERFORMED: Repeat low transverse section. PREOPERATIVE DIAGNOSES: 1. Term intrauterine . 2. Previous section. 3. History of preeclampsia with delivery. 4. Onset of Labor POSTOPERATIVE DIAGNOSES: 1. Term intrauterine . 2. Previous section. 3. History of preeclampsia with delivery. 4. Onset of Labor ANESTHESIA: Spinal. INDICATIONS: The patient is a 22-year-old, G2, P2 female at 38 weeks' gestation , who presented to labor and delivery in active labor, which had started about 10 a.m. that morning with contractions. TOLAC had been discussed with the patient at clinic and the patient elected to have repeat after risks and benefits were discussed. PROCEDURE IN DETAIL: After risks, benefits, and alternatives were explained to the patient, she gave informed consent. Preoperative antibiotics included 2 g of cefazolin IV as well as 500 of azithromycin. The patient was taken to the operating room and spinal anesthesia was initiated. She was placed in supine position with a left tilt and prepped and draped in a usual sterile fashion. A Pfannenstiel incision was made with the scalpel excising previous keloid at the time of incision. The incision was carried down to the level of fascia, which was sharply nicked. The fascial cut was extended bilaterally with Haile scissors. The inferior and superior edges of cut fascial edges were elevated with Luis Angel clamps and the underlying rectus muscles were sharply and bluntly dissected free. The recti were divided digitally and retracted manually. Haile scissors was used to extend the space between the recti in order to gain access to the peritoneum. Peritoneum was entered bluntly and retracted manually. Markus O ring was put into place. Urinary bladder was identified. A low-transverse score was made with the scalpel and the uterus was entered in the midline with the scalpel. Clear fluid was seen. Hysterotomy was extended manually. The infant was noted to be vertex and LOP. The infant was easily delivered by fundal pressure. Mouth and nares were bulb suctioned. Cord clamped and cut, and grossly normal female handed to the awaiting nurse. Cord blood was obtained. Placenta was manually extracted, and found to be intact with 3-vessel cord and discarded. The uterus was externalized and the endometrium was curetted with a dry lap. The uterus was closed with a running 0 Monocryl suture. Hemostasis was found to be sufficient after 1 layer. Gutters and posterior uterus were examined and found to be hemostatic with no lesions. Following this, the uterus was internalized and the hysterotomy was again noticed to be hemostatic. The peritoneum was closed with running nonlocking 3-0 chromic suture. The recti were examined and bleeders were Bovied. The fascia was closed with a running nonlocking 0 Vicryl suture. The subcutaneous tissue was irrigated and bleeders were Bovied, and found to be hemostatic. The subcutaneous layer was approximated with running nonlocking 3-0 chromic suture. The skin was approximated with 4-0 Monocryl. All counts were correct. The patient tolerated the procedure well and was taken to recovery room in stable condition. ESTIMATED BLOOD LOSS: 750 mL. QUANTITATIVE BLOOD LOSS: Pending. COMPLICATIONS: None. SPECIMENS: Cord blood sent to lab for blood type. FINDINGS: Grossly normal female infant with Apgars of 9 and 9, born at 0228 on 03/15/2020. Grossly normal placenta with 3-vessel cord discarded. DRAINS: [place] to gravity draining clear urine. Job ID: [id number] [facility]
[2018-03-15] MEDS ORDERED: Lanolin Ointment 7 GM TUBE TOP PRN (05:39)
[2018-03-15] MEDS ORDERED: Adacel (T-DAP) 0.5 ML SYRINGE IM ONE (05:39)
[2018-03-15] MEDS ORDERED: diphenhydrAMINE 25 MG CAP PO PRN (05:39)
[2018-03-15] MEDS ORDERED: NS / Oxytocin 40 units/1000ml 1,000 ML IV SCH (05:39)
[2018-03-15] MEDS ORDERED: Misoprostol 200 MCG TAB PR PRN (05:39)
[2018-03-15] MEDS ORDERED: HYDROcodone/Acetaminophen 5/325 mg Tablet PO PRN (05:39)
[2018-03-15] MEDS ORDERED: Simethicone Chewable 80 MG TAB PO PRN (05:39)
[2018-03-15] MEDS ORDERED: Methylergonovine 0.2 MG/ML VIAL IM PRN (05:39)
[2018-03-15 08:06] LABS: Creatinine, Urine 32.64 mg/dL (47-110)
--- NOTE | 2018-03-15 08:27 | PDOC.PP ---
Post Progress Note Post Day #: 1 Subjective: This morning patient states she has had 4-5 episodes of vomiting overnight. Denies blood in vomit, has still been trying to take ice chips. States she has not tried walking as of yet. Denies pain. Minimal bleeding. PO intake tolerated: no Flatus: no Ambulation: no Vital Signs (12 hours) Temp Pulse Resp BP Pulse Ox 03/15/18 08:05 98.0 F 72 20 135/67 98 03/15/18 06:00 98.0 F 93 20 128/73 03/15/18 05:10 97.5 F L 74 18 133/76 98 03/15/18 00:02 98.9 F 102 H 20 146/83 H 99 Weight Weight 67.132 kg - Physical Examination General: NAD Cardiovascular: no m/r/g, RRR Respiratory: clear to auscultation bilaterally, non-labored breathing Abdominal: + bowel sounds, appropriately TTP Fundus firm & at: umbilicus Extremities: negative homans (B) Deviation from normal: pressure dressing freshly in place Neurological: no gross focal deficits Psychiatric: A&Ox3, normal affect Result Diagrams: 03/15/18 00:20 03/15/18 00:20 Additional Labs: Post Labs Blood Type A POSITIVE 03/15/18 00:20 Hep Bs Antigen Non-Reactive S/CO (NonReactive) 03/15/18 00:20 (1) delivery delivered Code(s): O82 - ENCOUNTER FOR DELIVERY WITHOUT INDICATION Status: Acute - Assessment/Plan 22 yo delivered at 38.0 by cesearean section as patient elected for c/s when risks of TOLAC were explained. Patient presented in labor, was scheduled for 03/27/17. PP day 1 - last 3 BPs WNL - hx of mag PP with last , will watch bps closely - asx in regards to pre-e at this time - CBC, CMP WNL - urine pr/cr pending, called lab to ask again that this be run - treating N/V w/ zofran, phenergan - minimal bleeding, fundus firm at umbilicus Addendum - Attending - Attending Attestation Date/Time: 03/15/18 4018 I personally evaluated the patient and discussed the management with Dr. Hoffman and team. I agree with and repeated the History, Examination, Assessment and Plan documented above with any addition or exceptions noted below. Patient doing well, no preE symptoms, nausea resolved. All BP's most recently have been <140/90. Prot/cr ratio is elevated. Will monitor closely.
[2018-03-15] MEDS: Prenatal Vitamin 1 TAB PO SCH (09:47)
[2018-03-15] MEDS: Docusate Calcium (SURFAK) 240 MG CAP PO SCH ×2 (09:47→21:29)
[2018-03-15] MEDS: Ibuprofen 800 MG TAB PO SCH ×3 (09:47→23:58)
[2018-03-15] MEDS: HYDROcodone/Acetaminophen 5/325 mg Tablet PO PRN (19:15)
[2018-03-16] MEDS: Ibuprofen 800 MG TAB PO SCH ×3 (05:44→21:35)
[2018-03-16 06:21] LABS: Hemoglobin 12.3 g/dL (12.0-16.0); Mean Corpuscular HGB CONC 33.6 g/dL (32.0-36.0); Mean Corpuscular Hemoglobin 29.6 pg (27.0-31.0); Mean Corpuscular Volume 88.1 fL (78.0-98.0); Mean Platelet Volume 10.3 fL (7.4-10.4); Platelet Count 164 thou/uL (130-400); RBC Distribution Width 12.7 % (11.5-14.5); Red Blood Cell (RBC) Count 4.14 mill/uL (4.20-5.40); White Blood Cell (WBC) Count 8.1 thou/uL (4.8-10.8)
--- NOTE | 2018-03-16 08:19 | PDOC.FM ---
- Subjective Subjective: This morning patient states she slept well overnight. Mild burning at incision site when walking. Has been ambulating to the restroom w/o difficulty. Denies headcahe, N/V, visual changes, sob, or swelling. Formula feeding. - Objective Vital Signs & Weight: Vital Signs (12 hours) Temp Pulse Resp BP Pulse Ox 03/16/18 03:50 98.1 F 77 16 109/57 L 98 03/15/18 23:55 98.5 F 86 20 107/54 L 98 03/15/18 20:30 98.2 F 74 16 109/56 L 96 Weight Weight 67.132 kg I&O: 03/15/18 03/16/18 03/17/18 06:59 06:59 06:59 Intake Total 200 Output Total 75 1800 Balance 125 -1800 Result Diagrams: 03/16/18 05:43 03/15/18 00:20 Dx/Plan (1) delivery delivered Code(s): O82 - ENCOUNTER FOR DELIVERY WITHOUT INDICATION Status: Acute
--- NOTE | 2018-03-16 08:20 | PDOC.PP ---
Post Progress Note Post Day #: 2 Subjective: This morning patient states she slept well overnight. Mild burning at incision site when walking. Has been ambulating to the restroom w/o difficulty. Denies headcahe, N/V, visual changes, sob, or swelling. Formula feeding. PO intake tolerated: yes Flatus: yes Ambulation: yes Vital Signs (12 hours) Temp Pulse Resp BP Pulse Ox 03/16/18 03:50 98.1 F 77 16 109/57 L 98 03/15/18 23:55 98.5 F 86 20 107/54 L 98 03/15/18 20:30 98.2 F 74 16 109/56 L 96 Weight Weight 67.132 kg - Physical Examination General: NAD Cardiovascular: no m/r/g, RRR Respiratory: clear to auscultation bilaterally, non-labored breathing Abdominal: + bowel sounds, lochia, no distention, appropriately TTP Fundus firm & at: level of umbilicus Extremities: negative homans (B) Skin: CS incision dry & intact, no rash Neurological: no gross focal deficits Psychiatric: A&Ox3, normal affect Result Diagrams: 03/16/18 05:43 03/15/18 00:20 Additional Labs: Post Labs Blood Type A POSITIVE 03/15/18 00:20 Hep Bs Antigen Non-Reactive S/CO (NonReactive) 03/15/18 00:20 (1) delivery delivered Code(s): O82 - ENCOUNTER FOR DELIVERY WITHOUT INDICATION Status: Acute - Assessment/Plan 22 yo delivered at 38.0 by section as patient elected for c/s when risks of TOLAC were explained. Patient presented in labor, was scheduled for 03/27/17. PP day 2 - BPs WNL overnight - hx of mag PP with last , will watch bps closely - asx in regards to pre-e - CBC, CMP WNL, will re-check tomorrow - urine pr/cr 0.7, suspect contaminant as no sxs, BPs & other labs WNL - treating N/V w/ zofran - minimal bleeding, fundus firm at umbilicus Dispo: plan for d/c tomorrow Addendum - Attending - Attending Attestation Date/Time: 03/16/18 1302 I personally evaluated the patient and discussed the management with Dr. Hoffman and team. I agree with the History, Examination, Assessment and Plan documented above with any addition or exceptions noted below.
[2018-03-16] MEDS: Docusate Calcium (SURFAK) 240 MG CAP PO SCH ×2 (08:37→21:35)
[2018-03-16] MEDS: Prenatal Vitamin 1 TAB PO SCH (08:37)
[2018-03-16] MEDS: NS w/ Oxytocin 10 units 500 ML IV SCH (10:39)
[2018-03-16] MEDS: HYDROcodone/Acetaminophen 5/325 mg Tablet PO PRN ×2 (13:07→21:36)
[2018-03-17] MEDS: HYDROcodone/Acetaminophen 5/325 mg Tablet PO PRN (06:50)
[2018-03-17] MEDS: Ibuprofen 800 MG TAB PO SCH (06:50)
[2018-03-17 06:59] LABS: Mean Corpuscular HGB CONC 33.3 g/dL (32.0-36.0); Mean Corpuscular Hemoglobin 29.4 pg (27.0-31.0); Mean Corpuscular Volume 88.3 fL (78.0-98.0); Mean Platelet Volume 9.8 fL (7.4-10.4); Platelet Count 218 thou/uL (130-400); RBC Distribution Width 12.9 % (11.5-14.5); Red Blood Cell (RBC) Count 4.43 mill/uL (4.20-5.40); White Blood Cell (WBC) Count 8.1 thou/uL (4.8-10.8)
[2018-03-17 07:19] LABS: ALT (SGPT) 18 U/L (8-55); AST (SGOT) 18 U/L (5-34); Albumin 2.6 g/dL (3.5-5.0); Alkaline Phosphatase 253 U/L (40-150); Anion Gap 13 mmol/L (10-20); BUN (Urea Nitrogen) 7 mg/dL (7.0-18.7); Bilirubin, Total 0.3 mg/dL (0.2-1.2); Calc. Creatinine Clearance 151 mL/min (70-130); Calcium 8.7 mg/dL (7.8-10.44); Carbon Dioxide 23 mmol/L (22-29); Chloride 106 mmol/L (98-107); Estimated GFR-MDRD Greater than 90; Globulin 3.3 g/dL (2.4-3.5); Glucose 84 mg/dL (70-105); Potassium 3.7 mmol/L (3.5-5.1); Protein, Total 5.9 g/dL (6.0-8.3); Sodium 138 mmol/L (136-145)
[2018-03-17 08:16] VITALS: BP 109/58; TEMP 98.1
[2018-03-17] MEDS: Prenatal Vitamin 1 TAB PO SCH (08:34)
[2018-03-17] MEDS: Docusate Calcium (SURFAK) 240 MG CAP PO SCH (08:34)
[2018-03-17] MEDS ORDERED: Midazolam HCl 2 mg/2 ml Vial ONE (08:54)
[2018-03-17] MEDS: NS w/ Oxytocin 10 units 500 ML IV SCH (11:53)
== END 2018-03-17 12:05 | disposition home or self-care (01) | DRG 788 ==
LOC: L&D/OP 23:11 → L&D 03-15 01:07 → 3SW 03-15 05:28
PROVIDERS: ADMIT Family Medicine; ATTEND Family Medicine
PROC: 10D00Z1 Extraction of Products of Conception, Low, Open Approach (ICD-10-PCS; principal; 2018-03-15)
PROC: 3E0234Z Introduction of Serum, Toxoid and Vaccine into Muscle, Percutaneous Approach (ICD-10-PCS; 2018-03-17)
DX: O34.211 Maternal care for low transverse scar from previous cesarean delivery (principal); Z37.0 Single live birth; O99.89 Other specified diseases and conditions complicating pregnancy, childbirth and the puerperium; R03.0 Elevated blood-pressure reading, without diagnosis of hypertension; Z3A.37 37 weeks gestation of pregnancy; Z23 Encounter for immunization
CPT/HCPCS: 36415; 80053; 82570; 84156; 85027; 86780; 86850; 86900; 86901; 87340; 90715; J0456; J1200; J1885; J2250; J2274; J2405; J2590; J3010; J7050

== ENCOUNTER 2021-12-05 05:55 | Emergency (ER) | payer MEDICAID, SELFPAY ==
[2021-12-05] MEDS ORDERED: HYDROcodone/Acetaminophen 5/325 mg Tablet ONE (06:36)
[2021-12-05] MEDS ORDERED: Ciprofloxacin 0.2% Otic (0.25ML CONTAINER) R EAR SCH (07:45)
== END 2021-12-05 09:01 | disposition home or self-care (01) ==
LOC: ERS 05:55
DX: H60.91 Unspecified otitis externa, right ear (principal)
CPT/HCPCS: 99282

== ENCOUNTER 2022-05-28 08:23 | Emergency (ER) | payer OTHER, SELFPAY ==
[2022-05-28 09:41] LABS: Fetal Membranes Rupture RUPTURE DETECTED (No Rupture)
[2022-05-28 09:43] LABS: Fetal Memb Rubt Inter Cntrl QC ACCEPTABLE (ACCEPTABLE)
== END 2022-05-28 09:40 | disposition short-term general hospital (02) ==
LOC: ERS 08:23
DX: O60.03 Preterm labor without delivery, third trimester (principal); Z3A.33 33 weeks gestation of pregnancy
CPT/HCPCS: 36415; 84112; 86900; 86901